=== PATIENT | male | born 1970 | race Caucasian/White ===

== ENCOUNTER 2016-11-20 09:56 | Inpatient (IN) | payer SELFPAY ==
[~2016-11-20] VITALS: Ht 175.3 cm; Wt 68.4 kg
[~2016-11-20 09:56] MED LIST: OLAN10TA3 PO
[2016-11-20 10:35] LABS: BASOPHILS % (AUTO) 0.6 % (0.0-2.0); HEMATOCRIT 44.3 % (41-53); HEMOGLOBIN 14.3 g/dL (13.5-17.5); LYMPHOCYTES # (AUTO) 1.6 K/uL (1.0-4.8); LYMPHOCYTES % (AUTO) 22.8 % (22.0-44.0); MEAN CORPUSCULAR HEMOGLOBIN 29.2 pg (26.0-34.0); MEAN CORPUSCULAR HGB CONC 32.4 G/dL (31.0-37.0); MEAN CORPUSCULAR VOLUME 90 fL (80-100); MONOCYTES # (AUTO) 0.7 K/uL (0.1-1.0); MONOCYTES % (AUTO) 9.8 % (2.0-9.0); NEUTROPHILS # (AUTO) 4.6 K/uL (1.8-7.7); NEUTROPHILS % (AUTO) 63.8 % (40.0-70.0); PLATELET COUNT (AUTO) 291 K/uL (150-450); RED BLOOD CELL COUNT(AUTO) 4.92 MIL/uL (4.50-5.90); RED CELL DISTRIBUTION WIDTH 14.7 % (11.5-14.5); WHITE BLOOD COUNT (AUTO) 7.2 K/uL (4.5-11.0)
[2016-11-20 10:40] LABS: ANION GAP 9 mmol/L (8-16); CALCIUM, TOTAL 8.8 mg/dL (8.8-10.5); CARBON DIOXIDE 28 mmol/L (22-29); CHLORIDE 105 mmol/L (98-107); CREATININE 0.71 mg/dL (0.60-1.30); GLOMERULAR FILTR. RATE CALC > 60 mL/min (>60); POTASSIUM 4.4 mmol/L (3.5-5.1); SODIUM SERUM 142 mmol/L (136-145); UREA NITROGEN, BLOOD 13 mg/dL (7-18)
[2016-11-20 10:46] LABS: ALANINE AMINOTRANSFERASE 316 U/L (12-78); ALBUMIN 3.6 g/dL (3.4-5.0); ASPARTATE AMINOTRANSFERASE 154 U/L (15-37); BILIRUBIN,TOTAL 0.5 mg/dL (0.1-1.0)
[2016-11-20 20:48] VITALS: BP 128/75
[2016-11-20 22:31] VITALS: BP 100/58
[2016-11-21 08:10] VITALS: BP 111/65
[2016-11-21] MEDS ORDERED: OLANZapine 10 MG TABLET PO SCH (21:00)
[2016-11-22 08:14] VITALS: BP 120/72
[2016-11-22] MEDS: LORazepam 2 MG TABLET PO PRN (15:43)
[2016-11-22] MEDS: HALOPERIDOL 5 MG TABLET PO PRN (15:43)
[2016-11-22 16:14] VITALS: BP 126/73
[2016-11-22] MEDS ORDERED: OLANZapine 5 MG TABLET PO SCH (21:00)
[2016-11-23] MEDS: HALOPERIDOL 5 MG TABLET PO PRN (08:18)
[2016-11-23] MEDS: LORazepam 2 MG TABLET PO PRN (08:18)
[2016-11-23 08:25] VITALS: BP 98/69
[2016-11-23] MEDS: OLANZapine 5 MG TABLET PO SCH ×2 (09:15→21:31)
[2016-11-24] MEDS: LORazepam 2 MG TABLET PO PRN (07:53)
[2016-11-24] MEDS: HALOPERIDOL 5 MG TABLET PO PRN (07:54)
[2016-11-24] MEDS: OLANZapine 5 MG TABLET PO SCH ×2 (08:20→20:22)
[2016-11-24 09:24] VITALS: BP 108/77
[2016-11-25] MEDS: HALOPERIDOL 5 MG TABLET PO PRN (07:41)
[2016-11-25] MEDS: LORazepam 2 MG TABLET PO PRN ×2 (07:41→16:18)
[2016-11-25] MEDS: OLANZapine 5 MG TABLET PO SCH ×2 (08:06→21:01)
[2016-11-25 09:29] VITALS: BP 110/72
[2016-11-26] MEDS: OLANZapine 5 MG TABLET PO SCH (08:22)
[2016-11-26 09:19] VITALS: BP 114/79
[2016-11-26] MEDS: LORazepam 2 MG TABLET PO PRN (13:31)
[2016-11-26 16:30] VITALS: BP 123/69
[2016-11-26] MEDS: OLANZapine 10 MG TABLET PO SCH (20:26)
[2016-11-27 04:48] LABS: HEPATITIS Bs ANTIGEN SCREEN P Negative (Negative); HEPATITIS C AB SCREEN >11.0 s/co ratio (0.0-0.9)
[2016-11-27 08:05] VITALS: BP 90/62
[2016-11-27] MEDS: OLANZapine 10 MG TABLET PO SCH ×2 (08:57→21:22)
[2016-11-27 16:13] VITALS: BP 125/69
[2016-11-28 08:23] VITALS: BP 105/73
[2016-11-28] MEDS: OLANZapine 10 MG TABLET PO SCH ×2 (08:30→20:26)
[2016-11-28 16:26] VITALS: BP 108/75
[2016-11-29 07:39] LABS: CHOL/HDL RATIO 3.4 (4.2-7.3)
[2016-11-29 08:32] VITALS: BP 113/70
[2016-11-29] MEDS: OLANZapine 10 MG TABLET PO SCH ×2 (09:05→20:19)
[2016-11-29 18:28] VITALS: BP 107/74
[2016-11-30 08:17] VITALS: BP 105/57
[2016-11-30] MEDS: OLANZapine 10 MG TABLET PO SCH (09:24)
[2016-11-30] MEDS ORDERED: OLAN10TA3 PO (11:32)
== END 2016-11-30 14:05 | disposition home or self-care (01) | DRG 885 ==
LOC: EEVIPCON 09:58 → EMS 09:58 → 3EC 15:41
DX: F20.0 Paranoid schizophrenia (principal); F15.10 Other stimulant abuse, uncomplicated; F17.200 Nicotine dependence, unspecified, uncomplicated; Z71.6 Tobacco abuse counseling; K74.60 Unspecified cirrhosis of liver; B19.20 Unspecified viral hepatitis C without hepatic coma; F32.9 Major depressive disorder, single episode, unspecified; R03.0 Elevated blood-pressure reading, without diagnosis of hypertension; Z53.29 Procedure and treatment not carried out because of patient's decision for other reasons; F12.10 Cannabis abuse, uncomplicated; Z88.0 Allergy status to penicillin; Z59.0 Homelessness; Z91.19 Patient's noncompliance with other medical treatment and regimen
CPT/HCPCS: 80074; 99285; 99406; G0480